=== PATIENT | male | born 2000 | race Asian ===

== ENCOUNTER 2023-12-23 20:47 | Inpatient (IN) | payer OTHER ==
[2023-12-23 21:00] VITALS: BMI 27.2
[2023-12-23 22:06] LABS: BASO % 0.6 % (0-2.0); HEMATOCRIT 42.7 % (35.4-49); HEMOGLOBIN 15.1 GM/dL (11.7-16.9); LYMPH % 16.1 % (8-40); MCH 29.4 pg (25.7-33.7); MCHC 35.4 g/dl (32.0-35.9); MEAN CELL VOLUME 83.1 fl (80-96); MEAN PLT VOLUME 6.9 fl (7.5-11.1); MONO % 3.2 % (3.8-10.2); NEUT % 80.1 % (42.8-82.8); PLATELET COUNT 263 10^3/uL (134-434); RBC 5.14 M/mm3 (4.00-5.60); RDW 13.9 % (11.9-15.9); WHITE BLOOD COUNT 5.6 K/mm3 (4.0-10.0)
[2023-12-23 22:09] LABS: INR 1.34 (0.83-1.09); PROTHROMBIN TIME (PATIENT) 15.3 SEC (9.7-13.0)
[2023-12-23 22:20] LABS: VENOUS BASE EXCESS 0.9 mmol/L (-2-2); VENOUS O2 SATURATION 63.8 % (70-80); VENOUS PCO2 < 16.7 mmHg (38-52)
[2023-12-23 22:32] LABS: POTASSIUM 3.9 mmol/L (3.5-5.1)
[2023-12-23 22:34] LABS: BLOOD UREA NITROGEN 12.8 mg/dL (7-18); CALCIUM 9.7 mg/dL (8.5-10.1)
[2023-12-23 22:35] LABS: ALBUMIN 4.6 g/dl (3.4-5.0); MAGNESIUM 1.6 mg/dL (1.8-2.4)
[2023-12-23 22:37] LABS: CREATININE 1.2 mg/dL (0.55-1.3)
[2023-12-23 22:39] LABS: BILIRUBIN,TOTAL 2.1 mg/dL (0.2-1); TOT PROT 7.7 g/dl (6.4-8.2)
[2023-12-23] MEDS: DEXTROSE 5% IVPB ONE (22:44)
[2023-12-23] MEDS: ACETYLCYSTEINE IVPB ONE (22:44)
[2023-12-23] MEDS: WATER IVPB ONE (22:44)
[2023-12-23 22:45] LABS: LACTIC ACID 4.9 mmol/L (0.4-2.0)
[2023-12-23 23:23] LABS: CHLORIDE 107 mmol/L (98-107); POTASSIUM 3.8 mmol/L (3.5-5.1); SODIUM 139 mmol/L (136-145)
[2023-12-23 23:27] LABS: ALBUMIN 4.9 g/dl (3.4-5.0); ANION GAP 15 mmol/L (4-13); BLOOD UREA NITROGEN 12.9 mg/dL (7-18); CO2 17 mmol/L (21-32); GLUCOSE,RANDOM 134 mg/dL (74-106)
[2023-12-23 23:30] LABS: CREATININE 1.2 mg/dL (0.55-1.3); SGOT/AST 15 U/L (15-37); SGPT/ALT 20 U/L (13-61)
[2023-12-23 23:32] LABS: BILIRUBIN,TOTAL 2.5 mg/dL (0.2-1); TOT PROT 8.5 g/dl (6.4-8.2)
[2023-12-23 23:33] LABS: ALK PHOS 58 U/L (45-117)
[2023-12-24] MEDS: ACETYLCYSTEINE IVPB ONE ×2 (00:09→02:40)
[2023-12-24] MEDS: DEXTROSE 5% IVPB ONE ×2 (00:09→02:40)
[2023-12-24] MEDS: WATER IVPB ONE ×2 (00:09→02:40)
[2023-12-24 00:38] LABS: HEMOGLOBIN 15.3 GM/dL (11.7-16.9); MCH 28.8 pg (25.7-33.7); MCHC 34.7 g/dl (32.0-35.9); MEAN CELL VOLUME 82.8 fl (80-96); MEAN PLT VOLUME 7.5 fl (7.5-11.1); PLATELET COUNT 295 10^3/uL (134-434); RBC 5.32 M/mm3 (4.00-5.60); RDW 13.9 % (11.9-15.9)
[2023-12-24 00:46] LABS: URINE AMPHETAMINES NEGATIVE (NEGATIVE); URINE BARBITURATES NEGATIVE (NEGATIVE); URINE BENZODIAZEPINES NEGATIVE (NEGATIVE)
[2023-12-24 01:08] LABS: COCAINE, UR NEGATIVE (NEGATIVE); METHADONE, UR NEGATIVE (NEGATIVE); OPIATES, URI NEGATIVE (NEGATIVE); PHENCYCLIDINE,URINE NEGATIVE (NEGATIVE)
[2023-12-24 01:11] LABS: EPI CELLS >36 /uL (0-25.1); HYALINE CASTS 1 /uL (0-3.1); PH,URINE 5.5 (5.0-8.0); URINE APPEARANCE CLEAR; URINE BACTERIA 8 /uL (0-1359); URINE BILIRUBIN NEGATIVE (NEGATIVE); URINE COLOR DK YELLOW; URINE GLUCOSE (UA) NEGATIVE (NEGATIVE); URINE KETONE 4+ (NEGATIVE); URINE LEUK ESTERASE NEGATIVE (NEGATIVE); URINE NITRITE NEGATIVE (NEGATIVE); URINE PROTEIN 1+ (NEGATIVE); URINE RBC 13 /uL (0-23.9); URINE WBC 11 /uL (0-25.8)
[2023-12-24] MEDS ORDERED: MAGNESIUM SULFATE IN WATER 2 GM/50 ML IVPB IVPB ONE (03:46)
[2023-12-24] MEDS ORDERED: ONDANSETRON 4 MG/2 ML VIAL ONE (03:54)
[2023-12-24] MEDS: ONDANSETRON 4 MG/2 ML VIAL IVPUSH PRN (04:07)
[2023-12-24] MEDS: MAGNESIUM SULF 50% (8.12 MEQ/2 ML-1 GM VIAL) IVPB ONE (04:08)
[2023-12-24] MEDS: SODIUM CHLORIDE 1,000 ML IV STA (04:18)
[2023-12-24] MEDS: SODIUM CHLORIDE 1,000 ML IV SCH (06:03)
[2023-12-24 07:07] LABS: HEMATOCRIT 40.7 % (35.4-49); HEMOGLOBIN 13.9 GM/dL (11.7-16.9); MCH 28.5 pg (25.7-33.7); MCHC 34.1 g/dl (32.0-35.9); MEAN CELL VOLUME 83.5 fl (80-96); MEAN PLT VOLUME 7.1 fl (7.5-11.1); PLATELET COUNT 248 10^3/uL (134-434); RBC 4.87 M/mm3 (4.00-5.60); RDW 13.3 % (11.9-15.9); WHITE BLOOD COUNT 11.6 K/mm3 (4.0-10.0)
[2023-12-24 07:32] LABS: POTASSIUM 3.7 mmol/L (3.5-5.1)
[2023-12-24 07:35] LABS: CALCIUM 8.5 mg/dL (8.5-10.1)
[2023-12-24 07:36] LABS: BLOOD UREA NITROGEN 11.1 mg/dL (7-18); MAGNESIUM 2.4 mg/dL (1.8-2.4)
[2023-12-24 07:39] LABS: CREATININE 0.8 mg/dL (0.55-1.3); PHOSPHOROUS 3.1 mg/dL (2.5-4.9)
[2023-12-24 07:40] LABS: BILIRUBIN,TOTAL 2.6 mg/dL (0.2-1); TOT PROT 6.8 g/dl (6.4-8.2)
[2023-12-24 07:51] LABS: ALBUMIN 3.8 g/dl (3.4-5.0)
[2023-12-24 09:18] LABS: BILIRUBIN,DIRECT 0.4 mg/dL (0.0-0.2)
[2023-12-24] MEDS: ENOXAPARIN NA (PORCINE) 40 MG/0.4 ML DISP.SYRIN SQ SCH (10:21)
[2023-12-24 15:44] LABS: ALBUMIN 3.6 g/dl (3.4-5.0)
[2023-12-24 15:47] LABS: BILIRUBIN,DIRECT 0.4 mg/dL (0.0-0.2)
[2023-12-24 15:49] LABS: BILIRUBIN,TOTAL 2.2 mg/dL (0.2-1); TOT PROT 6.5 g/dl (6.4-8.2)
[2023-12-25 06:47] LABS: EOS % 1.1 % (0-4.5); HEMATOCRIT 38.5 % (35.4-49); HEMOGLOBIN 13.1 GM/dL (11.7-16.9); LYMPH % 35.6 % (8-40); MCH 28.6 pg (25.7-33.7); MEAN CELL VOLUME 84.1 fl (80-96); MEAN PLT VOLUME 6.8 fl (7.5-11.1); MONO % 6.6 % (3.8-10.2); NEUT % 55.7 % (42.8-82.8); PLATELET COUNT 216 10^3/uL (134-434); RBC 4.58 M/mm3 (4.00-5.60); RDW 13.6 % (11.9-15.9); WHITE BLOOD COUNT 6.3 K/mm3 (4.0-10.0)
[2023-12-25 07:04] LABS: POTASSIUM 3.7 mmol/L (3.5-5.1)
[2023-12-25 07:09] LABS: CALCIUM 8.6 mg/dL (8.5-10.1)
[2023-12-25 07:10] LABS: ALBUMIN 3.7 g/dl (3.4-5.0); BLOOD UREA NITROGEN 10.6 mg/dL (7-18)
[2023-12-25 07:12] LABS: BILIRUBIN,DIRECT 0.4 mg/dL (0.0-0.2)
[2023-12-25 07:13] LABS: CREATININE 0.8 mg/dL (0.55-1.3)
[2023-12-25 07:14] LABS: TOT PROT 6.1 g/dl (6.4-8.2)
[2023-12-25 07:16] LABS: BILIRUBIN,TOTAL 1.9 mg/dL (0.2-1)
[2023-12-25 15:57] VITALS: BP 119/65; PULSE 84; RESP 18; TEMP 98.4
== END 2023-12-25 16:16 | disposition home or self-care (01) | DRG 918 ==
LOC: JER 20:47 → JERBED 12-24 00:19
PROVIDERS: ADMIT Internal Medicine; ATTEND Internal Medicine
DX: T39.1X2A Poisoning by 4-Aminophenol derivatives, intentional self-harm, initial encounter (principal); E87.20 Acidosis, unspecified; R11.2 Nausea with vomiting, unspecified; F90.9 Attention-deficit hyperactivity disorder, unspecified type; F43.10 Post-traumatic stress disorder, unspecified; E83.42 Hypomagnesemia; F12.20 Cannabis dependence, uncomplicated
CPT/HCPCS: 0241U-QW; 36415; 76705-TC; 80048; 80053; 80076; 80307; 81003; 82248; 82803; 82977; 83605; 83690; 83735; 84100; 85025; 85027; 85610; 85730; 87086; 93005; 93010; 99285-25